=== PATIENT | female | born 1980 | race Caucasian/White ===

== ENCOUNTER 2018-04-03 06:00 | Day surgery (SDC) | payer OTHER ==
[2018-04-03] MEDS ORDERED: KEFLEX500 MG PO (16:31)
[2018-04-03] MEDS ORDERED: ULTRACET PO (16:32)
== END 2018-04-03 20:35 | disposition home or self-care (01) ==
LOC: CIR.AMB 06:00 → AMB-ENDOS 13:45 → CIR.AMB 20:35
DX: K43.6 Other and unspecified ventral hernia with obstruction, without gangrene (principal)